=== PATIENT | female | born 2000 | race Two or more races ===

== ENCOUNTER 2025-03-26 21:43 | Emergency (ER) | payer BC, OTHER ==
[~2025-03-26] VITALS: Ht 165.1 cm; Wt 64.8 kg
[2025-03-26 23:21] LABS: Hematocrit 38.8 % (36.0-46.0); Hemoglobin 12.8 g/dL (12.2-16.2); Mean Corpuscular Hemoglobin 27.5 pg (28.0-32.0); Mean Corpuscular Volume 83.5 fL (80.0-100.0); Nucleated Red Blood Cells % 0.1 %
--- NOTE | 2025-03-27 01:45 | ED.PDOC ---
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 Patient believes she is a proximally 8-9 weeks . Patient states the bleeding events happened twice but is not currently active. Patient denies any fever nausea or vomiting. Patient denies any traumatic events. Vital signs were stable at arrival. Chief Complaint: Vaginal Bleed Time Seen by MD: 21:46 Reviewed Notes: Nurses Notes Allergies: Coded Allergies: NO KNOWN ALLERGIES (Unverified , 03/26/25) Information Source: Patient, Friend Mode of Arrival: Ambulatory Timing: Hours Prehospital treatment: None Severity: Mild Bleeding Quality: Bright Red Onset Of Mass/Bleeding: Spontaneous Past Medical History PAST MEDICAL HISTORY: Denies Past Medical History (Other): Patient states she is currently 8+ weeks . 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: No Pertinent RAIL DETECTOR CAR OPERATOR History Family History Family History: Reviewed,noncontributory to illness, No family hx of Cancer, No family hx of DM, No family hx of Heart jamarcus, No family hx of HTN, No family hx ofKidney jamarcus, No family hx of Liver jamarcus, No family hx of Lung jamarcus, No family hx of Stroke Social History Smoker: Non-Smoker Alcohol: Denies ETOH Use Drugs: Denies Drug Use Lives In: Home Constitutional: denies: chills, diaphoresis, fatigue, fever, malaise, sweats, weakness, others EENTM: denies: blurred vision, double vision, ear bleeding, ear discharge, ear drainage, ear pain, ear ringing, eye pain, eye redness, hearing loss, mouth pain, mouth swelling, nasal discharge, nose bleeding, nose congestion, nose pain, photophobia, tearing, throat pain, throat swelling, voice changes, others Respiratory: denies: cough, hemoptysis, orthopnea, SOB at rest, shortness of breath, SOB with excertion, stridor, wheezing, others Cardiovascular: denies: chest pain, dizzy spells, diaphoresis, Dyspnea on exertion, edema, irregular heart beat, left arm pain, lightheadedness, palpitations, PND, syncope, others Gastrointestinal: denies: abdomen distended, abdominal pain, blood streaked bowels, constipated, diarrhea, dysphagia, difficulty swallowing, hematemesis, melena, nausea, poor appetite, poor fluid intake, rectal bleeding, rectal pain, vomiting, others Genitourinary: reports: abnormal vagina bleeding; denies: burning, dyspareunia, dysuria, flank pain, frequency, hematuria, incontinence, pain, , vagina discharge, urgency, others Neurological: denies: dizziness, fainting, headache, left sided numbness, left sided weakness, numbness, paresthesia, pre-existing deficit, right sided numbness, right sided weakness, seizure, speech problems, tingling, tremors, weakness, others Musculoskeletal: denies: back pain, gout, joint pain, joint swelling, muscle pain, muscle stiffness, neck pain, others Integumetry: denies: bruises, change in color, change in hair/nails, dryness, laceration, lesions, lumps, rash, wounds, others Allergic/Immunocompromised: denies: Difficulty Healing, Frequent Infections, Hives, Itching, others Hematologic/Lymphatic: denies: anemia, blood clots, easy bleeding, easy bruising, swollen glands, others Endocrine: denies: excessive hunger, excessive sweating, excessive thirst, excessive urination, flushing, intolerance to cold, intolerance to heat, unexplained weight gain, unexplained weight loss, others Psychiatric: denies: anxiety, bipolar disorder, depression, hopeless, panic disorder, schizophrenia, sleepless, suicidal, others Physical Exam General Appearance: No Apparent Distress (Patient was in distress at time of evaluation.), Normal HEENT: Normal ENT Inspection, Pharynx Normal, TMs Normal Neck: Full Range of Motion, Non-Tender, Normal, Normal Inspection Respiratory: Chest Non-Tender, Lungs Clear, No Accessory Muscle Use, No Respiratory Distress, Normal Breath Sounds Cardiovascular: No Edema, No JVD, No Murmur, No Gallop, Normal Peripheral Pulses, Regular Rate/Rhythm Breast Exam: Deferred Gastrointestinal: No Organomegaly, Non Tender, No Pulsatile Mass, Normal Bowel Sounds, Soft Genitalia: Deferred Pelvic: Deferred Rectal: Deferred Extremities: No calf tenderness, Normal capillary refill, Normal inspection, Normal range of motion, Non-tender, No pedal edema 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 Was a procedure done?: No Differential Diagnosis (RAIL DETECTOR CAR OPERATOR) Vaginal Bleeding: - Incomplete, - Inevitable, - Threatened, Other (Subchorionic hemorrhage) X-Ray, Labs, Meds, VS Vital Signs Date Time Temp Pulse Resp B/P (MAP) Pulse Ox O2 Delivery O2 Flow Rate FiO2 03/26/25 22:27 97.6 89 18 109/86 (94) 98 97.6 Lab Test 03/26/25 23:11 Range/Units White Blood Count 12.4 H 4.4-10.8 10^3/uL Red Blood Count 4.65 4.0-5.20 10^6/uL Hemoglobin 12.8 12.2-16.2 g/dL Hematocrit 38.8 36.0-46.0 % Mean Corpuscular Volume 83.5 80.0-100.0 fL Mean Corpuscular Hemoglobin 27.5 L 28.0-32.0 pg Mean Corpuscular Hemoglobin Concent 32.9 32.0-36.0 g/dL Red Cell Distribution Width 15.8 H 11.8-14.3 % Platelet Count 243 140-450 10^3/uL Mean Platelet Volume 9.5 6.9-10.8 fL Neutrophils (%) (Auto) 68.7 37.0-80.0 % Lymphocytes (%) (Auto) 23.4 10.0-50.0 % Monocytes (%) (Auto) 6.8 0.0-12.0 % Eosinophils (%) (Auto) 0.7 0.0-7.0 % Basophils (%) (Auto) 0.4 0.0-2.0 % Neutrophils # (Auto) 8.5 1.6-8.6 10 ^3/uL Lymphocytes # (Auto) 2.9 0.4-5.4 10 ^3/uL Monocytes # (Auto) 0.8 0-1.3 10 ^3/uL Eosinophils # (Auto) 0.1 0-0.8 10 ^3/uL Basophils # (Auto) 0.1 0-0.2 10 ^3/uL Nucleated Red Blood Cells 0.1 % Beta HCG, Quantitative > 209656.0 H 1.5-4.2 mIU/mL X-Ray, Labs, Meds, VS Comment All studies performed in the ED were evaluated by me personally. Serum studies revealed a beta-hCG of over [id number]. Ultrasound confirmed a nine week one day viable . Small sub chorionic hemorrhage was noted. Advised patient follow up with her property insurance inspector for continued management of her progressing . Time of 1ST Reevaluation: Reevaluation 1ST: Unchanged Consultation: PCP, customer relations assistant Patient Education/Counseling: Diagnosis, Treatment Family Education/Counseling: Diagnosis, Treatment Departure 1 Departure Time of Disposition: Impression: Primary Impression: Vaginal bleeding before 22 weeks gestation Additional Impression: Subchorionic hemorrhage Disposition: HOME / SELF CARE / HOMELESS Condition: Stable Additional Instructions: Patient has a healthy nine week one day . Advised patient follow up with her property insurance inspector for continued evaluation and management as well as discussions related to her small subchorionic hemorrhage. Discharged With: Self, Friend Critical Care Note Critical Care Time?: No Stability Stability form required: No Heart Score Heart Score: Heart Score Response (Comments) Value History N/A 0 EKG N/A 0 Age N/A 0 Risk Factors N/A 0 Troponin N/A 0 Total 0 OREN RUIZ PAC Mar 27, 2025 01:45
--- NOTE | 2025-03-27 01:52 | DVH ---
OB EVALUATION, LESS THAN 14 WEEKS CLINICAL HISTORY: Vaginal bleed COMPARISON: None TECHNIQUE: Grayscale, color-flow Doppler, and spectral Doppler ultrasound of the pelvis is performed by transabdominal and transvaginal technique. FINDINGS: Uterus measures 9.2 x 5.8 x 7.6 cm. Intrauterine gestational sac and pole identified. Yolk sac is also noted. Mean gestational sac diameter 4 cm. [place]-rump length 2.2 cm. Average ultrasound age 9 weeks 1 day. heart rate 174 beats per minute. Estimated due date 10/29/2025. Approximately 2.0 x 0.8 by 3.0 cm curvilinear hypoechoic structure adjacent to the gestational sac ma y represent a subchorionic hematoma. The right ovary measures 3.2 x 2.4 x 2.9 cm and demonstrates an approximately 2.2 cm cysts which may represent a corpus luteum. The left ovary measures 1.6 x 1.1 x 1.8 cm. Both ovaries demonstrate dopplerable blood flow on spectral analysis. No free fluid identified in the cul-de-sac. IMPRESSION: Single living intrauterine as above. Suspected subchorionic hematoma. HS:Y
[2025-03-27 02:09] VITALS: BP 112/67; PULSE 89; RESP 18; TEMP 98.2; O2SAT 96
== END 2025-03-27 02:10 | disposition home or self-care (01) ==
LOC: ER 21:43
DX: O20.0 Threatened abortion (principal); Z3A.09 9 weeks gestation of pregnancy
CPT/HCPCS: 36415; 76801; 84702; 85025